=== PATIENT | female | born 1975 | race Caucasian/White ===

== ENCOUNTER 2016-10-12 12:00 | Day surgery (SDC) | payer OTHER ==
[~2016-10-12] VITALS: Ht 154.9 cm; Wt 53.5 kg
[~2016-10-12 12:00] MED LIST: 0.9% Sodium Chloride 1,000 ML IV SCH; CYCL5TAB PO; METH750T3 PO; NORG1TAB78 PO; Sodium Chloride LOK Flush 10 mL Syringe IV PRN; fentaNYL-PF 50 mCg/mL 2 mL Inj IVPUSH PRN
[2016-10-12 12:17] VITALS: BP 109/70; PULSE 85; RESP 16; O2SAT 98
[2016-10-12 13:40] VITALS: BP 110/63; PULSE 86; RESP 16; O2SAT 100
[2016-10-12 13:50] VITALS: BP 89/64; PULSE 92; RESP 16; O2SAT 100
[2016-10-12 14:00] VITALS: BP 106/69; PULSE 102; RESP 16; O2SAT 100
--- NOTE | 2016-10-13 01:05 | ENDO ---
[address] [address] ENDOSCOPY PROCEDURE PATIENT: JACK PAGE : 1975 MR#: [id number] ADMIT: 10/12/2016 JOB ID: [id number] DATE: 10/12/2016 PRIMARY PROVIDER: Anuj Lowe MD PROCEDURE: 1. Esophagogastroduodenoscopy with biopsies. 2. Colonoscopy. INDICATIONS: A 41-year-old female with some intermittent symptoms of dysphagia and globus sensation. She additionally has a family history of colon cancer and a personal history of unknown histology colon polyps. Both EGD and colonoscopy are thus pursued. EQUIPMENT: GIF H 180 J and a PCF H 190 DL. SEDATION: 10 mg Versed and 200 mcg fentanyl. COMPLICATIONS: None identified. BOWEL PREPARATION: Fair, adequate exam. PROCEDURE INFORMATION: After the risks and benefits were explained, written and verbal informed consent was obtained. The patient was brought into the endoscopy suite and placed into the left lateral decubitus position. Sedation was achieved as above. The scope introduced into the mouth through the bite block, and advanced under direct visualization through the oropharynx, esophagus, stomach, and onto the second portion of the duodenum. The scope was slowly withdrawn to carefully examine the mucosa for any defects or lesions. Retroflexed views were accomplished in the stomach. The stomach was decompressed. The scope removed from the patient who tolerated the procedure well. The patient was then turned around. A digital rectal examination accomplished. No significant pathology appreciated apart from mild internal hemorrhoids. The scope was introduced into the rectum and advanced under direct visualization to the cecum as identified by the appendiceal orifice and ileocecal valve. The scope was slowly withdrawn to carefully examine the mucosa for any defects or lesions. Multiple direct views were made through the dentate line for exclusion of pathology. The colon was decompressed. The scope removed from the patient who tolerated the procedure well. FINDINGS: 1. Duodenum: At the junction between D1 and D2, there was a small nodule removed with cold forceps. The major papilla was easily identified and appeared slightly prominent, but I did not appreciate any neoplasia evident. 2. Stomach: No ulcers, no erosions. No mass lesions. No outlet obstruction. No significant mucosal pathology appreciated. Retroflexed views of the LES disclosed sliding hiatal hernia. 3. Esophagus: The squamocolumnar junction extended up into the tubular esophagus ever so subtly. This would potentially be judged as a C0 M1-2 cm section of Mendes's. A couple of biopsies were taken from the potential Mendes's in the distal esophagus. This tongue of Mendes's ran nearly 3/4 of the circumference of the esophagus. No acute erosive features. No strictures. No mass lesions. The patient appeared to have an approximately 2-3 cm sliding hiatal hernia. There was a benign-appearing inlet patch in the proximal esophagus. No other pathology appreciated from above. 4. Colon: Rather twisty colon but no evidence of any significant polyps, mass lesions or significant inflammatory features throughout. ENDOSCOPIC DIAGNOSES: 1. Duodenal nodule. 2. Sliding hiatal hernia. 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 4. Hemorrhoids. 5. Otherwise visually unremarkable colonoscopy. RECOMMENDATIONS: 1. Await histopathology. 2. If Mendes's is identified, and nondysplastic, repeat EGD will likely be pursued in 9-12 months. 3. Repeat colonoscopy in five years considering family history. 4. Based on the presence of the hiatal hernia, I suspect the globus sensation to be a result of nonerosive reflux disease. I would recommend at least a trial of proton pump inhibitor to see if symptoms are ameliorated. 5. Follow up on clinical effect in the GI Clinic in the next 4-6 weeks.
--- NOTE | 2016-10-14 12:35 | PATH ---
SURGICAL PATHOLOGY Attending Physician:Ariel Romo CASE STATUS: Signed Out PATIENT NAME: JACK PAGE PID: [id number] : 1975 DATE COLLECTED:10/12/2016 00:00 SPECIMEN: 1: Duodenum, Biopsy 2: Esophagus, Biopsy CLINICAL HISTORY: 1). Duodenal Nodule Bx 2). Distal Esophagus Bx FINAL DIAGNOSIS: 1.DUODENAL NODULE BIOPSY: HETEROTOPIC GASTRIC MUCOSA, CHRONICALLY INFLAMED, NEGATIVE FOR ATYPIA. 2.DISTAL ESOPHAGUS BIOPSIES: SQUAMOUS MUCOSA, GASTRIC CARDIA-TYPE MUCOSA, AND OXYNTIC-TYPE MUCOSA, NEGATIVE FOR SPECIALIZED METAPLASIA OF ROSS' S-TYPE ESOPHAGUS. CHRONIC INFLAMMATION WITH REACTIVE EPITHELIAL CHANGES. Negative for dysplasia and malignancy. Rare eosinophil present within squamous epithelium consistent with changes of chronic reflux. ICD10 code K21.0 GROSS DESCRIPTION: The specimen is received in two formalin filled containers labeled with the patient's name. 1). The specimen is sublabeled "duodenal nodule" and consists of 2 portions of tissue which aggregate to 0.3-0.3 x 0.2 CM. The specimen is entirely submitted in cassette 1A. 2). The specimen is sublabeled "distal esophagus" and consists of 2 portions of tissue which aggregate to 0.4 x 0.4 x 0.3 CM. The specimen is entirely submitted in cassette 2A. 10/13/2016 [facility] MICRO DESCRIPTION: See diagnosis. ICD-9 CODES: CPT CODES: 1: 37225 2: 36145 Electronically Signed Out Rudy Orona MD [facility] Pathology [facility] [address] [facility], [place] [address] Technical component performed at [facility], [facility] [address], [address]
== END 2016-10-12 23:59 | disposition home or self-care (01) ==
LOC: END 12:00
PROVIDERS: ATTEND Internal Medicine Gastroenterology
DX: Z12.11 Encounter for screening for malignant neoplasm of colon (principal); K64.8 Other hemorrhoids; Z86.010 Personal history of colon polyps; Z80.0 Family history of malignant neoplasm of digestive organs; K21.9 Gastro-esophageal reflux disease without esophagitis; K31.89 Other diseases of stomach and duodenum; K44.9 Diaphragmatic hernia without obstruction or gangrene; G43.909 Migraine, unspecified, not intractable, without status migrainosus; J30.9 Allergic rhinitis, unspecified
CPT/HCPCS: 43239; 99153; G0105; G0500; J2250; J3010; J7030